=== PATIENT | male | born 1950 ===

== ENCOUNTER 2022-04-26 22:09 | Emergency (ER) | payer MEDICARE, OTHER, SELFPAY ==
--- NOTE | ~2022-04-26 | CT_ITS ---
EXAMINATION: CT HEAD WITHOUT CONTRAST CT CERVICAL SPINE WITHOUT CONTRAST CLINICAL INFORMATION: Fall with head strike COMPARISON: 01/03/2020 TECHNIQUE: Multidetector CT imaging of the head and cervical spine was performed without the use of intravenous contrast. Multiplanar reformats are reviewed. This CT examination was performed using dose optimization techniques as appropriate, variously including the following: *Automated exposure control *Adjustment of mA and/or kV according to patient size (this includes techniques or standardized protocols for targeted exams where dose is matched to indication/reason for exam; i.e. extremities or head) *Use of iterative reconstruction technique DLP: 1412 mGy-cm. FINDINGS: There is no evidence of acute intracranial hemorrhage or territorial infarction. No abnormal mass effect or midline shift is seen. Kraus to white matter differentiation is well preserved. No extra-axial fluid collections are identified. The ventricles are normal in size. There is no abnormal attenuation within the brain parenchyma. The osseous structures and soft tissues are normal. The mastoid air cells and visualized portions of the paranasal sinuses are well-aerated. Atlantooccipital alignment is maintained. The vertebral bodies and posterior elements align normally. No acute fracture or subluxation. Vertebral body heights are maintained. Endplate osteophytes present throughout the cervical spine, most probably at C5-C6 and C6-C7 with accompanying loss of disc space height. Facet arthropathy present throughout the cervical spine. Left thyroid nodule redemonstrated, measuring at least 3.3 cm.. Stable chronic pleural parenchymal scarring within the medial left upper lobe. CT/CT cervical spine wo con IMPRESSION: No acute intracranial pathology. No cervical spine fracture or malalignment. Nonemergent thyroid ultrasound.
--- NOTE | ~2022-04-26 | CT_ITS ---
EXAMINATION: CT HEAD WITHOUT CONTRAST CT CERVICAL SPINE WITHOUT CONTRAST CLINICAL INFORMATION: Fall with head strike COMPARISON: 01/03/2020 TECHNIQUE: Multidetector CT imaging of the head and cervical spine was performed without the use of intravenous contrast. Multiplanar reformats are reviewed. This CT examination was performed using dose optimization techniques as appropriate, variously including the following: *Automated exposure control *Adjustment of mA and/or kV according to patient size (this includes techniques or standardized protocols for targeted exams where dose is matched to indication/reason for exam; i.e. extremities or head) *Use of iterative reconstruction technique DLP: 1412 mGy-cm. FINDINGS: There is no evidence of acute intracranial hemorrhage or territorial infarction. No abnormal mass effect or midline shift is seen. Kraus to white matter differentiation is well preserved. No extra-axial fluid collections are identified. The ventricles are normal in size. There is no abnormal attenuation within the brain parenchyma. The osseous structures and soft tissues are normal. The mastoid air cells and visualized portions of the paranasal sinuses are well-aerated. Atlantooccipital alignment is maintained. The vertebral bodies and posterior elements align normally. No acute fracture or subluxation. Vertebral body heights are maintained. Endplate osteophytes present throughout the cervical spine, most probably at C5-C6 and C6-C7 with accompanying loss of disc space height. Facet arthropathy present throughout the cervical spine. Left thyroid nodule redemonstrated, measuring at least 3.3 cm.. Stable chronic pleural parenchymal scarring within the medial left upper lobe. CT/CT head/brain wo con IMPRESSION: No acute intracranial pathology. No cervical spine fracture or malalignment. Nonemergent thyroid ultrasound.
[2022-04-26 22:30] VITALS: BP 110/72; PULSE 69
[2022-04-26 23:24] VITALS: BMI 32.5
--- NOTE | 2022-04-26 23:52 | ED.FALL ---
HPI - Fall General Chief Complaint: Fall Stated Complaint: fall Time Seen by Provider: 04/26/22 22:12 Source: patient and EMS Mode of arrival: EMS Limitations: no limitations History of Present Illness HPI Narrative: 71 yo male with history of chronic low back pain s/p multiple surgeries, right foot drop who presents to the ER via EMS for evaluation of multiple falls while hiking today. He reports earlier today he was [place], got lost and was hiking in rough terrain. He slipped and fell probably 5 times and hit his head at least 3. He sustained abrasions to his knees and forearms. He denies ever losing consciousness and was able to get up shortly after each time he fell. He is not on anticoagulation. He eventually came to a road, got cell service and called 911. MD complaint: fall Onset (ago): hour(s) Fall from: standing Fall witnessed: no Place fall occurred: other (while hiking) Loss of consciousness: none Prolonged down time: no Symptoms prior to fall: none Location of injury: head Location of injury - extremities: left: knee Severity: mild Severity scale (1-10): 3 Quality: aching Associated symptoms (after fall): headache Related Data Allergies Allergy/AdvReac Type Severity Reaction Status Date / Time amoxicillin [AMOXICILLIN] Allergy Mild HIVES, rash Verified 04/26/22 23:27 latex [LATEX] Allergy Unknown RASH Verified 04/26/22 23:27 penicillin G Allergy Unknown rash Verified 04/26/22 23:27 Penicillins [PENICILLINS] Allergy Unknown RASH Verified 04/26/22 23:27 Latix Allergy Unknown Unknown Uncoded 04/26/22 23:27 Review of Systems Review of Systems: Constitutional: No Fever, No Chills ENT/Mouth: No sore throat, facial trauma or dental trauma Cardiovascular: No Chest Pain, No SOB Respiratory: No Cough, No Sputum Gastrointestinal: No Nausea, No Vomiting, No Diarrhea, No abdominal Pain Musculoskeletal: No joint pain, No Myalgias Skin: + Skin Lesions, No rash Neuro: No Weakness, No Numbness, No Dizziness, + Headache Psych: No Anxiety/Panic, No Depression Heme/Lymph: No Bruising, No Lymphadenopathy PMFSH Social History Social History Advance Directives: No Advance Directives Information Provided: Yes Physical Exam Vital Signs: Vital Signs: BMI result Body Mass Index 32.5 Appearance: Alert. Oriented X3. No acute distress. Head: vertx of the scalp with a palpable hematoma with small superficial abrasion, no large lac, no palpable skull depression. Eyes: Pupils equal, round and reactive to light. ENT: Pharynx normal. Neck: Normal inspection. Neck supple. No midline tenderness. CVS: Normal heart rate and rhythm. Pulses normal. Respiratory: No respiratory distress. Breath sounds normal. Abdomen: Soft and nontender. +BS x4. no ecchymosis. Skin: Skin warm and dry. Normal skin color. Normal skin turgor. No rashes. Extremities: superfiical abrasions on the bilateral knees, normal ROM of the knees. no active bleeding. Neuro: Oriented X 3. No motor deficit. No sensory deficit. Ambulates with a limp, right foot drop present Course Course Course Narrative: 71 yo male presents to the ER for evaluation of headache after he fell and hit his head several times today while hiking. He is AAOx3 and appears well. He is in a cervical collar. Will get CT scans to r/o traumatic injuries. Reevaluation(s) Reevaluation #1: CT scans are unremarkable. Stable for d/c home. Discharge Plan Discharge Clinical Impression: Closed head injury Patient Disposition: Home, Self-Care Instructions: Head Injury (ED), Abrasion (ED) Additional Instructions: Your CT scan showed no acute injuries. It did show an incidental finding of a 3.3cm thyroid nodule. This should be ultrasounded as an outpatient. Follow up with your PCP for this. Use ice on your head to help bring the swelling down. Take Motrin and/or Tylenol as needed for pain. If you develop new or worsening symptoms call 911 or come back to the ER for further evaluation.
[2022-04-27] VITALS: BP 134/64; PULSE 88; RESP 18; TEMP 37.1; O2SAT 95
== END 2022-04-27 00:22 | disposition home or self-care (01) ==
PROVIDERS: Emergency Provider Internal Medicine
DX: S09.90XA Unspecified injury of head, initial encounter (principal); S80.212A Abrasion, left knee, initial encounter; S80.211A Abrasion, right knee, initial encounter; S50.812A Abrasion of left forearm, initial encounter; S50.811A Abrasion of right forearm, initial encounter; M54.50 Low back pain, unspecified; M54.2 Cervicalgia; M21.371 Foot drop, right foot; R51.9 Headache, unspecified; Y93.01 Activity, walking, marching and hiking; Y92.821 Forest as the place of occurrence of the external cause; Y99.9 Unspecified external cause status; Z79.899 Other long term (current) drug therapy
CPT/HCPCS: 70450; 72125; 99283; 99284

== ENCOUNTER 2024-07-22 19:20 | Emergency (ER) | payer MEDICARE, OTHER, SELFPAY ==
--- NOTE | ~2024-07-22 | XR_ITS ---
EXAMINATION: XR CHEST CLINICAL INFORMATION: Cough and congestion COMPARISON: CT chest 01/03/2020 TECHNIQUE: 2 views of the chest were obtained. FINDINGS: No significant abnormality is noted involving the heart, lungs, mediastinum, bony thorax or soft tissues. XR/XR chest 2V IMPRESSION: Unremarkable examination. Electronically signed by: Danny Newman MD 07/22/2024 09:38 PM EDT RP
[2024-07-22 19:23] VITALS: BP 115/60; PULSE 78; RESP 18; TEMP 36.5; O2SAT 97; BMI 25.5
--- NOTE | 2024-07-22 19:43 | ED.URI ---
HPI - URI/Sore Throat General Chief Complaint: Upper Respiratory Symptoms Stated Complaint: Congestion/Cough Time Seen by Provider: 07/22/24 22:24 History of Present Illness ED Provider: Uche Lee PA-C HPI Narrative: 73 yold male with pmh of HTN and anxiety presents to the ED for coughing, bodyaches, and chills for 2 weeks. patient states coughing white phelghm. Patient denies any chest pain, leg swelling, pitting edema, calf tenderness, pleurisy, recent travel, recent surgery, or any estrogen hormonal use. Related Data Previous Rx's ?Medication ?Instructions ?Recorded azithromycin 250 mg tablet See Rx Instructions PO .COMPLEX #6 07/22/24 tabs benzonatate 200 mg capsule 200 mg PO TID PRN cough 5 days #15 07/22/24 caps Allergies Allergy/AdvReac Type Severity Reaction Status Date / Time amoxicillin [AMOXICILLIN] Allergy Mild HIVES, rash Verified 07/22/24 19:24 latex [LATEX] Allergy Unknown RASH Verified 07/22/24 19:24 penicillin G Allergy Unknown rash Verified 07/22/24 19:24 Penicillins [PENICILLINS] Allergy Unknown RASH Verified 07/22/24 19:24 Latix Allergy Unknown Unknown Uncoded 07/22/24 19:24 Review of Systems Review of Systems: Coughing, body aches, and chills. Coughing white phlegm Yes all other systems are reviewed and are negative PMFSH Social History Social History Advance Directives: No Advance Directives Information Provided: No Physical Exam Vital Signs: Vital Signs: Last Vital Signs Temp 97.7 F 07/22/24 23:31 Pulse 78 07/22/24 23:31 Resp 18 07/22/24 23:31 BP 115/60 07/22/24 23:31 Pulse Ox 97 07/22/24 23:31 O2 Del Method Room Air 07/22/24 23:31 BMI result Body Mass Index 25.5 Const: General: cooperative, healthy appearing, comfortable, no acute distress, well developed, alert, awake and Physically active Orientation/consciousness: patient oriented x3 HEENT: Head: Yes normal to inspection, Yes No palpable skull fracture present, Yes normocephalic and Yes atraumatic Ears: hearing grossly normal bilaterally, external ears normal, TM's normal bilaterally, TM normal on the right, TM normal on the left, EAC's normal, mastoids normal and no periauricular adenopathy Throat: Yes posterior oropharynx normal, Yes tonsils normal and Yes uvula midline Eyes: General: appearance normal, both eyes and all related structures Neck: Neck: Yes normal visual inspection, Yes full ROM, Yes no lymphadenopathy, Yes no meningeal signs, Yes trachea midline, Yes supple, No anterior neck swelling and No tender Chest: Chest palpation & inspection: normal inspection of the chest and normal palpation of entire chest wall Resp: Effort & Inspection: normal respiratory effort and able to speak in complete sentences Auscultation: wheezes expiratory wheezes and throughout (mild) Cardio: Jugular venous distension: no JVD Heart sounds: S1 normal heart sound present and S2 normal heart sound present GI: Inspection: Yes normal to inspection Palpation (GI): Soft to palpation, not firm, nontender, no guarding and not rigid : General: No CVA tenderness and Yes no CVA tenderness Back/Spine/Pelvis: Back: no CVA tenderness, No CVA tenderness and No back tenderness Skin: General skin exam: no rashes or lesions noted, elasticity normal and turgor normal Neuro: General: patient oriented x3, gait normal, tone normal, moves all extremities, Normal light touch and pain sensation, no meningeal signs, no focal motor deficits, CN's II-XI intact bilaterally and normal sensation to monofilament Extrem: Other: Bilateral lower extremity negative for swelling, pitting edema, or calf pain Psych: Appearance: grossly normal, well kempt and not disheveled Course Course Course Narrative: This is a Rapid Medical Examination (RME) performed by Faina Ferrer PA-C in triage. Full HPI, ROS, assessment and treatment plan per primary provider in the Main ED. 73 yo male here for eval of nasal congestion, cough, and subjective fevers x2 weeks. when asked about sob, states i dont know . no known sick contacts. Plan: viral swabs, cxr Medications Administered Discontinued Medications Generic Name Dose Route Start Last Admin Trade Name Freq PRN Reason Stop Dose Admin Albuterol Sulfate 4 puff 07/22/24 22:43 07/22/24 22:50 Albuterol Sulfate 90 Mcg 8 Gm Inhaler INHALE 07/22/24 22:44 4 puff ONCE ONE Administration Medical Decision Making Medical Decision Making MDM Narrative: 73 year male history of hypertension presents to ED for coughing white phlegm for 2 weeks with body aches and chills. Patient denies any shortness of breath, leg swelling, calf pain, pitting edema, or pleurisy. Physical exam indicates due to wheezing of the lungs. Not suspecting myocardial infarction, PE, heart failure, myocarditis, pericarditis, aortic dissection, pneumothorax, or hemothorax. Patient explained worrisome signs and informed to follow up with primary care provider and return to the ED immediately. Differential Diagnosis Differential Diagnoses: The differential diagnosis associated with the presentation includes (Pneumonia, COVID, strep, influenza) Admission/Observation Consideration of admission/observation: Escalation of care including admission/observation considered Lab Data MDM Lab Attestation statement: I reviewed the patient's lab results. Labs: Lab Results 07/22/24 Range/Units 19:37 Influenza Type A (PCR) NEGATIVE (Negative) Influenza Type B (PCR) NEGATIVE (Negative) RSV RNA Qual (PCR) NEGATIVE (Negative) SARS-CoV-2 RNA (RT-PCR) NEGATIVE (Negative) Independent Interpretation I performed an independent interpretation of an: Plain X-Ray Interpretation: TECHNIQUE: 2 views of the chest were obtained. FINDINGS: No significant abnormality is noted involving the heart, lungs, mediastinum, bony thorax or soft tissues. XR/XR chest 2V IMPRESSION: Unremarkable examination. Electronically signed by: Danny Newman MD 07/22/2024 09:38 PM EDT RP Independent Historian Clinical information obtained from an independent historian. History obtained from or confirmed by: Other (patient) External Record Review External record reviewed: Other (prior visits.) Prescription Management I considered prescription management with: Other (albuterol inhaler, coughing) Discharge Plan Discharge Clinical Impression: Upper respiratory infection, Bronchitis Patient Disposition: Home, Self-Care Instructions: How to Use a Metered-Dose Inhaler (ED), Upper Respiratory Infection (ED), Acute Bronchitis (ED) Additional Instructions: Recommend follow-up with the primary care provider. Return to the ED immediately for any coughing up blood, leg swelling, calf pain, pitting edema, chest pain/shortness of breath on exertion, intractable fever, weakness, dizziness, any other concerning symptoms. Continue using your albuterol inhaler you were given in the ED every 6 hours as needed 2 puffs. Prescriptions: New benzonatate 200 mg capsule 200 mg PO TID PRN (Reason: cough) 5 Days Qty: 15 0RF azithromycin 250 mg tablet See Rx Instructions .ROUTE .COMPLEX Qty: 6 0RF Rx Instructions: For 250 mg dose pack: take 500 mg today (day 1), then 250 mg for 4 days (days 2-5) Stand Alone Forms: Work/School Release Interventions: ED Discharge Assessment Last Done: 07/22/24 23:31 Discharge Date/Time: 07/22/24 23:32 Print Language: Setswana
[2024-07-22 20:47] LABS: Influenza A PCR NEGATIVE (Negative); Influenza B PCR NEGATIVE (Negative); Resp Syncy Virus RNA Qual PCR NEGATIVE (Negative); SARS COV2 PCR INHOUSE NEGATIVE (Negative)
[2024-07-22] MEDS: Albuterol Sulfate 90 MCG 8 GM INHALER 4 PUFF INHALE (22:50)
[2024-07-22 23:31] VITALS: BP 115/60; PULSE 78; RESP 18; TEMP 36.5; O2SAT 97
== END 2024-07-22 23:32 | disposition home or self-care (01) ==
PROVIDERS: Physician Assistant Medical; Emergency Provider Internal Medicine; PCP Internal Medicine
DX: J40 Bronchitis, not specified as acute or chronic (principal); J06.9 Acute upper respiratory infection, unspecified; R05.9 Cough, unspecified; Z03.818 Encounter for observation for suspected exposure to other biological agents ruled out
CPT/HCPCS: 0241U; 71046; 99282; 99283